=== PATIENT | female | born 1965 | race Caucasian/White ===

== ENCOUNTER → 2016-06-13 | Outpatient (CLI) | payer BC ==
[~2016-06-13] MED LIST: BIOT1TAB5 PO; HYDR0.5T PO; HYDR200T5 PO; IBUP-103 PO; SERT25TA PO
--- NOTE | 2016-06-13 12:36 | MAMMOGRAPHY REPORT ---
UNILATERAL LEFT DIGITAL DIAGNOSTIC MAMMOGRAM TOMOSYNTHESIS WITH CAD AND TARGETED LEFT ULTRASOUND: CLINICAL HISTORY: The patient reports an episode of left breast pain and greenish left nipple discha rge. The pain resolved but she did have another episode of blood tinged greenish nipple discharge. Her last episode was at the end of April. She denies any palpable lumps. TECHNIQUE: Breast tomosynthesis in addition to standard 2D mammography was performed. Current study was also evaluated with a Computer Aided Detection (CAD) system. Left CC and MLO 2-D and tomosynth esis images and spot magnification left CC and ML views were obtained. COMPARISON: Comparison is made to exams dated: 08/24/2015 mammogram, 09/08/2014 mammogram, 09/08/2014 ultrasound biopsy, 08/30/2014 mammogram, 08/22/2014 mammogram, and 03/23/2013 mammogram - [facility]. BREAST COMPOSITION: The tissue of the left breast is extremely dense, which lowers the sensitivity of mammography. FINDINGS: There are no suspicious masses, calcifications, or areas of architectural distortion note d in the left breast. There has been no significant interval change compared to prior exams. A bio psy marker clip is again noted in the left 3:00 breast. Targeted ultrasound was performed of the left subareolar breast. No intraductal mass or other suspi cious sonographic abnormalities are evident. IMPRESSION: ACR BI-RADS CATEGORY 2: BENIGN, TARGETED ULTRASOUND ACR BI-RADS CATEGORY 2: BENIGN No intraductal mass or other etiology for bloody left nipple discharge evident. There is no mammogr aphic or targeted sonographic evidence of malignancy. Recommend clinical follow-up; if the bloody n ipple discharge recurs, would recommend cytologic analysis of the discharge and consideration for MR I and/or surgical consultation. Also recommend routine bilateral screening mammograms due July 2016 . The patient has been verbally notified of the results. Approximately 10% of breast cancers are not detected with mammography. A negative mammographic repor t should not delay biopsy if a clinically suggestive mass is present. Carlee Conner M.D. ah/:06/13/2016 11:56:39 Cable Placer: Maura DOUGLASS(Latosha)(Peter), [facility] letter sent: Normal 1/2 BI-RADS Code: ACR BI-RADS Category 2: Benign Ultrasound BI-RADS: ACR BI-RADS Category 2: Benign
== END | disposition home or self-care (01) ==
LOC: C.MAMM 10:27
PROVIDERS: ATTEND Obstetrics & Gynecology
DX: N64.4 Mastodynia (principal); N64.52 Nipple discharge

== ENCOUNTER 2016-06-26 10:23 | Emergency (ER) | payer BC ==
[~2016-06-26] VITALS: Ht 165.1 cm; Wt 50.0 kg
[~2016-06-26 10:23] MED LIST changes: -HYDR200T5 PO
[2016-06-26 10:32] VITALS: TEMP 36.6; Ht 165.1 cm; Wt 50.0 kg
[2016-06-26] MEDS ORDERED: ONDANSETRON INJ 2 MG/ML 2 ML VIAL IV STA (10:46)
[2016-06-26] MEDS ORDERED: SODIUM CHLORIDE 0.9% 1000ML 1,000 ML IV STA (10:46)
[2016-06-26] MEDS ORDERED: OPTIRAY 320 IV PRN (11:00)
[2016-06-26] MEDS: FENTANYL CITRATE INJ 50 MCG/1 ML 2 ML VIAL IV PRN ×2 (11:10→13:05)
--- NOTE | 2016-06-26 11:50 | DIAGNOSTIC IMAGING REPORT ---
CHEST ONE VIEW PORTABLE CLINICAL HISTORY: Abdominal pain. COMPARISON STUDY: Chest radiograph September 25, 2014. FINDINGS: There is no pneumothorax or pleural effusion. Lung volumes are normal. Cardiac size is normal. Mediastinal contours are normal. There is lower lung interstitial prominence. IMPRESSION: No definite acute findings. Mild interstitial prominence which is likely within normal limits. Electronically signed by: Kulwant Neal M.D. 06/26/2016 11:49 AM Dictated Date/Time: 06/26/2016 11:48 AM
[2016-06-26 11:57] LABS: BASO % 0.2 %; BASO ABS # 0.02 K/uL (0-0.2); COMPLETE YES; EOS % 0.4 %; HEMATOCRIT 37.9 % (37-47); IG% 0.3 %; LYMPH % 4.9 %; LYMPH ABS # 0.47 K/uL (1.2-3.4); MEAN CELL VOLUME 94.3 fL (80-100); MEAN CORPUSCULAR HEMOGLOBIN 31.8 pg (25-34); MEAN CORPUSCULAR HGB CONC 33.8 g/dl (32-36); MEAN PLATELET VOLUME 11.6 fL (7.4-10.4); MONO % 4.6 %; NEUT % 89.6 %; PLATELET COUNT 164 K/uL (130-400); RED BLOOD COUNT 4.02 M/uL (4.2-5.4); WHITE BLOOD COUNT 9.61 K/uL (4.8-10.8)
[2016-06-26] MEDS ORDERED: HYDR200T5 PO (12:04)
[2016-06-26 12:20] LABS: BUN/CREATININE RATIO 21.4 (10-20); CALCIUM 7.8 mg/dl (8.5-10.1); CREATININE 0.5 mg/dl (0.60-1.20); POTASSIUM 3.9 mmol/L (3.5-5.1)
[2016-06-26 13:46] LABS: URINE APPEARANCE CLEAR (CLEAR); URINE COLOR DK YELLOW; URINE EPITHELIAL CELL AUTO >30 /lpf (0-5); URINE NITRITE NEG (NEG); URINE SPECIFIC GRAVITY 1.021 (1.000-1.030); UROBILINOGEN NEG (NEG); ZZUR CULT IF INDIC CLEAN CATCH NO
[2016-06-26 13:53] LABS: URINE BILIRUBIN 1+ (NEG)
[2016-06-26 13:55] LABS: MANUAL MICROSCOPIC REQUIRED? NO; REVIEW REQ? NO
--- NOTE | 2016-06-26 14:38 | DIAGNOSTIC IMAGING REPORT ---
CT SCAN OF THE ABDOMEN AND PELVIS WITH IV CONTRAST CLINICAL HISTORY: Generalized abdominal pain. COMPARISON STUDY: Abdominal CT dated 05/19/2012. TECHNIQUE: Following the IV administration of 110 cc of Optiray 320, CT scan of the abdomen and pelvis is performed from the lung bases to the proximal femora. Images are reviewed in the axial, sagittal, and coronal planes. IV contrast was administered without complication. Automated dose control exposure was utilized. CT DOSE: 259.61 mGy.cm FINDINGS: Lung bases: The heart is normal in size and without pericardial effusion. The lung bases are clear noting dependent atelectasis. Liver: The contrast-enhanced liver is normal in size, contour, and attenuation. Focal fatty infiltration is seen adjacent to the falciform ligament. There is mild central intrahepatic biliary ductal dilatation. The hepatic veins and portal veins are patent. Gallbladder: Surgically absent noting clips in the gallbladder fossa. Spleen: Normal in size and attenuation. Pancreas: Unremarkable. Adrenal glands: Unremarkable. Kidneys: The contrast enhanced kidneys are normal in size and without hydronephrosis. The kidneys enhance symmetrically. A retroaortic left renal vein is incidentally noted. There is a 3 mm nonobstructing calculus seen in the lower pole of the right kidney. Abdominal vasculature: The abdominal aorta is normal in course and caliber noting mild and age advanced atherosclerotic calcification. Bowel: The small bowel and colon are normal in course and caliber. There is mild colonic diverticulosis without CT evidence of acute diverticulitis. Fecal retention is noted in the right colon. The appendix is well-visualized and normal. Peritoneum: There is no intraperitoneal free air or abdominal ascites. There is a small fat-containing umbilical hernia. Lymphadenopathy: None. Pelvic viscera: The bladder is decompressed and grossly unremarkable. The uterus appears enlarged and heterogeneous. There are enhancing uterine masses, likely represent fibroids. A dominant follicle in the left ovary measures up to 2.7 cm. There is free fluid in the cul-de-sac. A tampon is in place. Skeletal structures: No lytic or blastic lesions are seen. There is mild lumbosacral spondylosis and scoliosis. IMPRESSION: 1. There are no acute infectious or inflammatory findings in the abdomen or pelvis. 2. The uterus is enlarged and heterogeneous. There are small enhancing uterine nodule, and while pathologically indeterminant the appearance is typical for uterine fibroids. This could be further assessed with a nonemergent pelvic ultrasound if clinically warranted. 3. Free fluid in the cul-de-sac is likely within physiologic limits. 4. Mild colonic diverticulosis without CT evidence of acute diverticulosis. 5. Small nonobstructing right renal calculus. 6. Additional findings as above. Electronically signed by: Jose Hoang M.D. 06/26/2016 2:37 PM Dictated Date/Time: 06/26/2016 2:30 PM
--- NOTE | 2016-06-26 15:04 | EMERGENCY ROOM VISIT NOTE ---
History Report prepared by Patti: Ashli Matthews Under the Supervision of: Dr. Jason Zarate D.O. First contact with patient: 10:37 Chief Complaint: ABDOMINAL PAIN Stated Complaint: EXTREME PAIN, PANCREATIC PAIN, IMTIAZ Nursing Triage Summary: Patient states she has pancreatitis and has abdominal pain into back and chest and vomiting. Symptoms began this am. History of Present Illness The patient is a 51 year old female who presents to the Emergency Room with complaints of persistent abdominal pain that began prior to arrival. She currently rates her discomfort as a 9/10 in severity. The patient states that when she woke this morning, she wasn't feeling well, associating nausea, vomiting, and diarrhea with her symptoms. The patient states that she started with the vomiting and diarrhea around 0600 this morning and states that she vomited 4 times and had 4 episodes of diarrhea. She states that she then developed intense abdominal pain that began radiating into her chest, shoulders , and through her back. The patient describes her discomfort as a squeezing pain. She notes difficulty breathing secondary to the pain. The patient states that she has had similar pain in the past, noting that she was diagnosed with a mild pancreatitis. She notes that this happened after she had her cholecystectomy. The patient states that her pain is worsened with lying flat. She notes a history of Lupus. Source of History: patient Onset: prior to arrival Position: abdomen Symptom Intensity: 9/10 Quality: other (squeezing, radiating) Timing: other (persistent) Modifying Factors (Worsening): other (lying flat) Associated Symptoms: + back pain, + chest pain, + diarrhea, + nausea, + vomiting Note: Associated Symptoms: shoulder pain, difficulty breathing due to pain Review of Systems See HPI for pertinent positives & negatives. A total of 10 systems reviewed and were otherwise negative. Past Medical & Surgical Medical Problems: (1) Bilateral tubal ligation (2) Systemic lupus erythematosus Surgical Problems: (1) Hx of cholecystectomy Family History Cancer Diabetes mellitus Gallbladder disease Heart disease Hypertension Kidney disease Kidney stones Seizures Social History Smoking Status: Current Every Day Smoker Alcohol Use: none Drug Use: none Marital Status: Housing Status: lives with family Occupation Status: employed Current/Historical Medications Scheduled Biotin (Biotin), 1,000 MCG PO HS Hydroxychloroquine Sulfate (Plaquenil), 400 MG PO HS Sertraline (Zoloft), 25 MG PO HS Scheduled PRN Ibuprofen Tab (Advil), 200-600 MG PO Q4H PRN for Pain Allergies Coded Allergies: Sulfamethoxazole w/Trimethoprim (Verified Allergy, Intermediate, lips burned/tingled/swollen, 06/26/16) Morphine (Verified Allergy, Unknown, OTHER, 06/26/16) Physical Exam Vital Signs Date Time Temp Pulse Resp B/P Pulse Ox O2 Delivery O2 Flow Rate FiO2 06/26/16 14:28 75 13 87/54 97 Room Air 06/26/16 14:00 68 12 97/57 96 Room Air 06/26/16 13:34 74 06/26/16 11:56 76 13 94/58 97 Room Air 06/26/16 11:44 73 06/26/16 10:32 36.6 78 17 103/54 99 Room Air Physical Exam CONSTITUTIONAL/VITAL SIGNS: Reviewed / noted above. GENERAL: Non-toxic in appearance. INTEGUMENTARY: Warm, dry, and [place]. HEAD: Normocephalic. EYES: without scleral icterus or trauma. ENT/OROPHARYNX: clear and moist. LYMPHADENOPATHY/NECK: Is supple without lymphadenopathy or meningismus. RESPIRATORY: Lungs clear and equal. CARDIOVASCULAR: Regular rate and rhythm. GI/ABDOMEN: Epigastric tenderness. Soft. No organomegaly or pulsatile mass. No rebound or guarding. Normal bowel sounds. EXTREMITIES: Warm and well perfused. BACK: Bilateral CVA tenderness. NEUROLOGICAL: Intact without focal deficits. PSYCHIATRIC: normal affect. MUSCULOSKELETAL: Normally developed with good muscle tone. Medical Decision & Procedures ER Provider Diagnostic Interpretation: Radiology results as stated below per my review and radiologist interpretation: CHEST ONE VIEW PORTABLE CLINICAL HISTORY: Abdominal pain. COMPARISON STUDY: Chest radiograph September 25, 2014. FINDINGS: There is no pneumothorax or pleural effusion. Lung volumes are normal. Cardiac size is normal. Mediastinal contours are normal. There is lower lung interstitial prominence. IMPRESSION: No definite acute findings. Mild interstitial prominence which is likely within normal limits. Electronically signed by: Kulwant Neal M.D. 06/26/2016 11:49 AM Dictated Date/Time: 06/26/2016 11:[address] SCAN OF THE ABDOMEN AND PELVIS WITH IV CONTRAST CLINICAL HISTORY: Generalized abdominal pain. COMPARISON STUDY: Abdominal CT dated 05/19/2012. TECHNIQUE: Following the IV administration of 110 cc of Optiray 320, CT scan of the abdomen and pelvis is performed from the lung bases to the proximal femora. Images are reviewed in the axial, sagittal, and coronal planes. IV contrast was administered without complication. Automated dose control exposure was utilized. CT DOSE: 259.61 mGy.cm FINDINGS: Lung bases: The heart is normal in size and without pericardial effusion. The lung bases are clear noting dependent atelectasis. Liver: The contrast-enhanced liver is normal in size, contour, and attenuation. Focal fatty infiltration is seen adjacent to the falciform ligament. There is mild central intrahepatic biliary ductal dilatation. The hepatic veins and portal veins are patent. Gallbladder: Surgically absent noting clips in the gallbladder fossa. Spleen: Normal in size and attenuation. Pancreas: Unremarkable. Adrenal glands: Unremarkable. Kidneys: The contrast enhanced kidneys are normal in size and without hydronephrosis. The kidneys enhance symmetrically. A retroaortic left renal vein is incidentally noted. There is a 3 mm nonobstructing calculus seen in the lower pole of the right kidney. Abdominal vasculature: The abdominal aorta is normal in course and caliber noting mild and age advanced atherosclerotic calcification. Bowel: The small bowel and colon are normal in course and caliber. There is mild colonic diverticulosis without CT evidence of acute diverticulitis. Fecal retention is noted in the right colon. The appendix is well-visualized and normal. Peritoneum: There is no intraperitoneal free air or abdominal ascites. There is a small fat-containing umbilical hernia. Lymphadenopathy: None. Pelvic viscera: The bladder is decompressed and grossly unremarkable. The uterus appears enlarged and heterogeneous. There are enhancing uterine masses, likely represent fibroids. A dominant follicle in the left ovary measures up to 2.7 cm. There is free fluid in the cul-de-sac. A tampon is in place. Skeletal structures: No lytic or blastic lesions are seen. There is mild lumbosacral spondylosis and scoliosis. IMPRESSION: 1. There are no acute infectious or inflammatory findings in the abdomen or pelvis. 2. The uterus is enlarged and heterogeneous. There are small enhancing uterine nodule, and while pathologically indeterminant the appearance is typical for uterine fibroids. This could be further assessed with a nonemergent pelvic ultrasound if clinically warranted. 3. Free fluid in the cul-de-sac is likely within physiologic limits. 4. Mild colonic diverticulosis without CT evidence of acute diverticulosis. 5. Small nonobstructing right renal calculus. 6. Additional findings as above. Electronically signed by: Jose Hoang M.D. 06/26/2016 2:37 PM Dictated Date/Time: 06/26/2016 2:30 PM Laboratory Results 06/26/16 11:40 Red Blood Count 4.02, Mean Corpuscular Volume 94.3, Mean Corpuscular Hemoglobin 31.8, Mean Corpuscular Hemoglobin Concent 33.8, Mean Platelet Volume 11.6, Neutrophils (%) (Auto) 89.6, Lymphocytes (%) (Auto) 4.9, Monocytes (%) (Auto) 4.6, Eosinophils (%) (Auto) 0.4, Basophils (%) (Auto) 0.2, Neutrophils # (Auto) 8.61, Lymphocytes # (Auto) 0.47, Monocytes # (Auto) 0.44, Eosinophils # (Auto) 0.04, Basophils # (Auto) 0.02 06/26/16 11:40 Test 06/26/16 11:40 06/26/16 13:05 White Blood Count 9.61 K/uL (4.8-10.8) Red Blood Count 4.02 M/uL (4.2-5.4) Hemoglobin 12.8 g/dL (12.0-16.0) Hematocrit 37.9 % (37-47) Mean Corpuscular Volume 94.3 fL (80-100) Mean Corpuscular Hemoglobin 31.8 pg (25-34) Mean Corpuscular Hemoglobin Concent 33.8 g/dl (32-36) Platelet Count 164 K/uL (130-400) Mean Platelet Volume 11.6 fL (7.4-10.4) Neutrophils (%) (Auto) 89.6 % Lymphocytes (%) (Auto) 4.9 % Monocytes (%) (Auto) 4.6 % Eosinophils (%) (Auto) 0.4 % Basophils (%) (Auto) 0.2 % Neutrophils # (Auto) 8.61 K/uL (1.4-6.5) Lymphocytes # (Auto) 0.47 K/uL (1.2-3.4) Monocytes # (Auto) 0.44 K/uL (0.11-0.59) Eosinophils # (Auto) 0.04 K/uL (0-0.5) Basophils # (Auto) 0.02 K/uL (0-0.2) RDW Standard Deviation 46.9 fL (36.4-46.3) RDW Coefficient of Variation 13.5 % (11.5-14.5) Immature Granulocyte % (Auto) 0.3 % Immature Granulocyte # (Auto) 0.03 K/uL (0.00-0.02) Anion Gap 3.0 mmol/L (3-11) Est Creatinine Clear Calc Drug Dose 107.4 ml/min Estimated GFR () 131.7 Estimated GFR (Non- 113.7 BUN/Creatinine Ratio 21.4 (10-20) Calcium Level 7.8 mg/dl (8.5-10.1) Total Bilirubin 0.5 mg/dl (0.2-1) Direct Bilirubin 0.2 mg/dl (0-0.2) Aspartate Amino Transf (AST/SGOT) 96 U/L (15-37) Alanine Aminotransferase (ALT/SGPT) 71 U/L (12-78) Alkaline Phosphatase 71 U/L (45-117) Total Protein 6.2 gm/dl (6.4-8.2) Albumin 3.6 gm/dl (3.4-5.0) Lipase 105 U/L (73-393) Urine Color DK YELLOW Urine Appearance CLEAR (CLEAR) Urine pH 5.0 (4.5-7.5) Urine Specific [place] 1.021 (1.000-1.030) Urine Protein NEG (NEG) Urine Glucose (UA) NEG (NEG) Urine Ketones 1+ (NEG) Urine Occult Blood NEG (NEG) Urine Nitrite NEG (NEG) Urine Bilirubin 1+ (NEG) Urine Urobilinogen NEG (NEG) Urine Leukocyte Esterase NEG (NEG) Urine WBC (Auto) 0 /hpf (0-5) Urine RBC (Auto) 0-4 /hpf (0-4) Urine Hyaline Casts (Auto) 1-5 /lpf (0-5) Urine Epithelial Cells (Auto) >30 /lpf (0-5) Urine Bacteria (Auto) NEG (NEG) Urine Test NEG (NEG) Laboratory results as stated above per my review. Medications Administered Medications (Trade) Dose Ordered Sig/Mary Route Start Time Stop Time Status Last Admin Dose Admin Sodium Chloride (Nss 1000ml) 1,000 ml @ 999 mls/hr Q1H1M STAT IV 06/26/16 10:46 06/26/16 11:46 DC 06/26/16 11:10 999 MLS/HR Ondansetron HCl (Zofran Inj) 4 mg NOW STAT IV 06/26/16 10:46 06/26/16 10:48 DC 06/26/16 11:10 4 MG Fentanyl Citrate (Fentanyl Inj) 100 mcg Q1H PRN IV 06/26/16 11:00 07/10/16 10:59 06/26/16 13:05 100 MCG ECG Indication: abdominal pain Rate (beats per minute): 73 Rhythm: normal sinus Findings: no acute ischemic change, no ectopy ED Course 1038: Previous medical records were reviewed. The patient was evaluated in room C5. A complete history and physical examination was performed. 1046: Ordered Zofran Inj 4 mg IV, Sodium Chloride 1000 ml @ 999 mls/hr IV. 1100: Ordered Fentanyl Inj 100 mcg IV. 1504: I reevaluated the patient and she is resting comfortably. I discussed the exam findings with her and her family and I discussed the treatment plan. She verbalized complete understanding and agreement. She is ready to go home. Medical Decision Differential considered: pancreatitis, hepatitis, or acute cholecystitis, AAA, UTI, pyelonephritis, kidney stones, appendicitis, diverticulitis, shingles, bowel obstruction mesenteric ischemia, intussusception,hernia, ovarian torsion, ruptured ovarian cyst,ectopic , . This is a 51-year-old female who presents to the ED with a chief complaint of nausea, vomiting and diarrhea about 4 times since 6 AM this morning. The patient is also having some abdominal pain similar to mild pancreatitis in the past. The patient states that her pain radiates into her shoulder and also into her back. She describes it as squeezing pain. She has some shortness of breath. She reports a history of cholecystectomy. The patient's vital signs are normal. Her physical exam revealed some mild upper abdominal tenderness. EKG shows a normal sinus rhythm at a rate of 73. CBC is normal. Complete metabolic panel was normal. Lipase is negative. test was negative. Urine did not show infection. A chest x-ray was negative for acute disease. CT scan abdomen and pelvis was also negative for acute disease. The patient was treated with IV fentanyl and IV fluids. She was given IV Zofran. Her symptoms have improved. She is felt to be stable for discharge and outpatient follow-up. Impression Primary Impression: Epigastric abdominal pain Scribe Attestation The scribe's documentation has been prepared under my direction and personally reviewed by me in its entirety. I confirm that the note above accurately reflects all work, treatment, procedures, and medical decision making performed by me. Departure Information Dispostion Home / Self-Care Referrals Esau Polo M.D. (PCP) Forms Call Back Authorization, HOME CARE DOCUMENTATION FORM, IMPORTANT VISIT INFORMATION Patient Instructions Abdominal Pain, My [facility] Additional Instructions Follow-up with your doctor for further care and evaluation in 1-2 days. Return to the emergency department for worsening or new symptoms or any concerns. You have been examined and treated today on an emergency basis only. This is not a substitute for, or an effort to provide, complete comprehensive medical care. It is impossible to recognize and treat all injuries or illnesses in a single emergency department visit. It is therefore important that you follow up closely with your doctor. Call as soon as possible for an appointment.
[2016-06-26 15:20] VITALS: BP 92/59; PULSE 76; O2SAT 96
== END 2016-06-26 15:21 | disposition home or self-care (01) ==
LOC: C.EDB 10:25 → C.EDC 15:21
DX: R10.13 Epigastric pain (principal); R11.2 Nausea with vomiting, unspecified; R19.7 Diarrhea, unspecified; M32.9 Systemic lupus erythematosus, unspecified; Z79.899 Other long term (current) drug therapy; Z82.0 Family history of epilepsy and other diseases of the nervous system; Z82.49 Family history of ischemic heart disease and other diseases of the circulatory system; Z83.3 Family history of diabetes mellitus; Z83.79 Family history of other diseases of the digestive system; Z84.1 Family history of disorders of kidney and ureter; F17.200 Nicotine dependence, unspecified, uncomplicated

== ENCOUNTER → 2017-01-30 | Outpatient (CLI) | payer BC ==
[~2017-01-30] MED LIST changes: -HYDR0.5T PO; +HYDR200T5 PO
--- NOTE | 2017-01-30 16:00 | DIAGNOSTIC IMAGING REPORT ---
RIGHT WRIST 3 VIEWS HISTORY: RIGHT WRIST PAIN COMPARISON: None. FINDINGS: There is no fracture or dislocation. Soft tissues are unremarkable. No radiopaque foreign bodies. IMPRESSION: No fractures. Electronically signed by: Brian Driscoll M.D. 01/30/2017 3:58 PM Dictated Date/Time: 01/30/2017 3:57 PM
== END | disposition home or self-care (01) ==
LOC: C.RDSM 16:25
PROVIDERS: ATTEND Physician Assistant
DX: M25.531 Pain in right wrist (principal)

== ENCOUNTER → 2017-02-25 | Outpatient (CLI) | payer BC ==
[~2017-02-25] MED LIST changes: +AMOX875T PO; +FLUT0.15 INH
== END | disposition home or self-care (01) ==
LOC: C.PAPS 09:37
PROVIDERS: ATTEND Physician Assistant
DX: Z01.419 Encounter for gynecological examination (general) (routine) without abnormal findings (principal)

== ENCOUNTER → 2017-06-16 | Outpatient (CLI) | payer BC ==
--- NOTE | 2017-06-17 07:51 | MAMMOGRAPHY REPORT ---
BILATERAL DIGITAL SCREENING MAMMOGRAM TOMOSYNTHESIS WITH CAD: 06/16/2017 CLINICAL HISTORY: Routine screening. Patient has no complaints. TECHNIQUE: Breast tomosynthesis in addition to standard 2D mammography was performed. Current study was also evaluated with a Computer Aided Detection (CAD) system. COMPARISON: Comparison is made to exams dated: 06/13/2016 mammogram, 08/24/2015 mammogram, 08/30/2014 ma mmogram, 08/22/2014 mammogram, 03/23/2013 mammogram, and 03/15/2012 mammogram - [facility]ter. BREAST COMPOSITION: The tissue of both breasts is extremely dense, which lowers the sensitivity of m ammography. FINDINGS: There is a stable ribbon-shaped biopsy marker clip in the 2:00 to 3:00 left breast. The gl andular pattern is similar to prior mammograms. Obvious new no mass, architectural distortion or clu ster of suspicious microcalcifications is seen. IMPRESSION: ACR BI-RADS CATEGORY 1: NEGATIVE There is no mammographic evidence of malignancy. A 1 year screening mammogram is recommended. The pa tient will receive written notification of the results. Approximately 10% of breast cancers are not detected with mammography. A negative mammographic report should not delay biopsy if a clinically suggestive mass is present. Leydi Restrepo M.D. ay/:06/16/2017 16:39:14 Stave Planer Tender: Kelley DOUGLASS(R)(M), [facility] letter sent: Normal 1/2 BI-RADS Code: ACR BI-RADS Category 1: Negative
== END | disposition home or self-care (01) ==
LOC: C.MAMM 16:18
PROVIDERS: ATTEND Obstetrics & Gynecology
DX: Z12.31 Encounter for screening mammogram for malignant neoplasm of breast (principal)

== ENCOUNTER 2017-06-19 12:04 | Emergency (ER) | payer BC ==
[~2017-06-19] VITALS: Ht 165.1 cm; Wt 45.8 kg
[~2017-06-19 12:04] MED LIST changes: -AMOX875T PO; -FLUT0.15 INH
[2017-06-19 12:11] VITALS: TEMP 36.8; Ht 165.1 cm; Wt 45.8 kg
[2017-06-19] MEDS ORDERED: AMOX875T PO (12:34)
[2017-06-19] MEDS ORDERED: FLUT0.15 INH (12:34)
[2017-06-19] MEDS ORDERED: OPTIRAY 320 IV PRN (13:00)
[2017-06-19 13:13] LABS: BASO ABS # 0.06 K/uL (0-0.2); EOS % 3.6 %; EOS ABS # 0.21 K/uL (0-0.5); HEMATOCRIT 40.2 % (37-47); HEMOGLOBIN 13.7 g/dL (12.0-16.0); IG# 0.02 K/uL (0.00-0.02); LYMPH % 32.3 %; LYMPH ABS # 1.86 K/uL (1.2-3.4); MEAN CELL VOLUME 92.2 fL (80-100); MEAN CORPUSCULAR HEMOGLOBIN 31.4 pg (25-34); MEAN CORPUSCULAR HGB CONC 34.1 g/dl (32-36); MEAN PLATELET VOLUME 10.8 fL (7.4-10.4); MONO % 7.6 %; MONO ABS # 0.44 K/uL (0.11-0.59); NEUT % 55.2 %; NEUT ABS # 3.17 K/uL (1.4-6.5); PLATELET COUNT 181 K/uL (130-400); RED CELL DISTRIBUTION WIDTH CV 13.2 % (11.5-14.5); RED CELL DISTRIBUTION WIDTH SD 44.9 fL (36.4-46.3); WHITE BLOOD COUNT 5.76 K/uL (4.8-10.8)
[2017-06-19 13:23] LABS: PTT PATIENT 28.3 SECONDS (21.0-31.0)
[2017-06-19 13:30] LABS: CALCIUM 9.1 mg/dl (8.5-10.1); CREATININE 0.64 mg/dl (0.60-1.20); POTASSIUM 3.6 mmol/L (3.5-5.1)
--- NOTE | 2017-06-19 14:31 | DIAGNOSTIC IMAGING REPORT ---
SINUSES-MAXILLOFACIAL WITH HISTORY: 52 years-old Female eval for sinusitis acute left-sided facial and head pain with concern for acute sinusitis. COMPARISON: CT of the paranasal sinuses 06/13/2011 TECHNIQUE: Multiple axial CT images of the paranasal sinuses and maxillofacial bones were obtained following the intravenous administration of 95 mL Optiray 320 IV contrast. A dose lowering technique was used consistent with the principals of DEE. FINDINGS: Bilateral orbits are unremarkable and within normal limits. Soft tissues are unremarkable without drainable fluid collection or significant inflammatory change. Imaged bilateral parotid glands are unremarkable. Image carotid vasculature appears to be within normal limits. The imaged carotid vasculature appears unremarkable. Mastoid air cells and middle ear cavities are clear. Minimal mucosal thickening of the left sphenoid sinus. The right sphenoid sinus, maxillary and frontal sinuses are clear. There is mild mucosal thickening of the anterior and posterior ethmoid air cells. The sphenoethmoidal and frontoethmoidal recesses are patent. The bilateral maxillary ostiomeatal units are also patent. There is mild leftward bowing and spurring of the nasal septum. Small bilateral salas bullosa. No Leslie cell. Josephine terri appears normal. Mild mucosal thickening of the nasal turbinates. Imaged nasopharynx appears patent. IMPRESSION: 1. Mild ethmoid sinus disease with patency of the sinus outflow tracts. 2. Mild leftward bowing and spurring of the nasal septum redemonstrated. 3. Small bilateral salas bullosa. The above report was generated using voice recognition software. It may contain grammatical, syntax or spelling errors. Electronically signed by: Thaddeus Pulido M.D. 06/19/2017 2:30 PM Dictated Date/Time: 06/19/2017 2:24 PM
--- NOTE | 2017-06-19 14:34 | DIAGNOSTIC IMAGING REPORT ---
HEAD WITHOUT CONTRAST (CT) CLINICAL HISTORY: 52 years-old Female presenting with headache, eval for mass. TECHNIQUE: Multidetector CT imaging of the head was performed without the use of intravenous contrast. IV contrast: None. A dose lowering technique was used consistent with the principles of ALARA (as low as reasonably achievable). COMPARISON: 07/27/2005. CT DOSE (mGy.cm): The estimated cumulative dose is 1015.03. FINDINGS: Mallet Cutter topogram: Unremarkable. Ventricles and sulci normal in size. Brain parenchyma normal in appearance with preserved woods-white differentiation. No mass effect or midline shift. No hemorrhage or acute territorial infarct. No extra-axial fluid collection. Paranasal sinuses and mastoid air cells clear. Calvarium intact. IMPRESSION: 1. No acute intracranial abnormality. Electronically signed by: Ajay Funez M.D. 06/19/2017 2:32 PM Dictated Date/Time: 06/19/2017 2:29 PM
[2017-06-19 15:27] VITALS: BP 98/60; PULSE 68; O2SAT 99
--- NOTE | 2017-06-19 19:49 | EMERGENCY ROOM VISIT NOTE ---
History Report prepared by Patti: Lewis Priest Under the Supervision of: Dr. Alex Currie M.D. First contact with patient: 12:26 Chief Complaint: HEADACHE Stated Complaint: HEADACHE History of Present Illness The patient is a 52 year old female who presents to the Emergency Room with complaints of intermittent headaches beginning four months ago. She localizes the pain to behind her left eye, which occasionally radiates to the back of her head. The patient notes that bright lights bother her eyes. She also complains of tingling to the left side of her face, and blurred vision. Her vision does not blur when she fixates on a point. The blurring is transient and she gets it when she is in pain. The patient states that her pain is worse with moving her left eye. She feels that her eye is pushing out slightly. She states that her symptoms are all present simultaneously. The patient saw her financial writer earlier this month and was told that her eye appeared normal. She was seen by her PCP for her symptoms earlier this week and placed on Augmentin for sinus infection. She denies fevers, diarrhea, urinary symptoms, or cough. The patient states that she has experienced a vibrating sensation to her left arm and left leg a few times, as well as an episode of heart palpitations additionally. The patient's denies noticing any swelling to her left eye. The patient states that her father and hair colorist have noticed that her left eye appears different than normal. The patient has a history of a unidentified connective tissue disorder (treated with Plaquenil) for which she follows up with Rheumatology. Source of History: patient Onset: Four months ago Position: head (behind left eye, occasionally radiating to back of head) Quality: ache Timing: intermittent Modifying Factors (Worsening): other (moving left eye) Associated Symptoms: No fevers, No cough, No diarrhea, No urinary symptoms Note: The patient also complains of tingling to the left side of her face, and blurred vision. Review of Systems See HPI for pertinent positives & negatives. A total of 10 systems reviewed and were otherwise negative. Past Medical & Surgical Medical Problems: (1) Bilateral tubal ligation (2) Systemic lupus erythematosus Surgical Problems: (1) Hx of cholecystectomy Family History Cancer Diabetes mellitus Gallbladder disease Heart disease Hypertension Kidney disease Kidney stones Seizures Social History Smoking Status: Current Every Day Smoker Alcohol Use: none Drug Use: none Marital Status: Housing Status: lives with family Occupation Status: employed Current/Historical Medications Scheduled Amoxicillin & Pot Clavulanate (Augmentin 875-125 mg), 1 TAB PO BID Fluticasone Propionate (Nasal) (Flonase Allergy Relief), 2 SPRAYS INH QAM Hydroxychloroquine Sulfate (Plaquenil), 400 MG PO HS Sertraline (Zoloft), 25 MG PO HS Scheduled PRN Ibuprofen Tab (Advil), 200-600 MG PO Q4H PRN for Pain Allergies Coded Allergies: Sulfamethoxazole w/Trimethoprim (Verified Allergy, Intermediate, lips burned/tingled/swollen, 06/19/17) Morphine (Verified Allergy, Unknown, OTHER, 06/19/17) Physical Exam Vital Signs Date Time Temp Pulse Resp B/P (MAP) Pulse Ox O2 Delivery O2 Flow Rate FiO2 06/19/17 15:27 68 18 98/60 99 06/19/17 14:32 79 20 100/49 100 Room Air 06/19/17 12:11 36.8 78 17 106/70 99 Room Air Physical Exam Constitutional: Vital signs reviewed. Eyes: Pupils are equal round reactive to light. Conjunctiva are noninjected. Intraocular pressure is 11 on the left and 12 on the right. No papular edema bilaterally. No proptosis of the orbit. No surrounding cellulitis. ENT: Left maxillary tenderness with inflammation of the bilateral turbinates. Pharynx is clear without erythema or exudate. Mucous membranes are moist. Neck supple without meningeal signs. Respiratory: Clear to auscultation bilaterally. Breath sounds are equal bilaterally. Cardiovascular: Regular rate and rhythm. No rubs or gallops. GI: Soft, nondistended and nontender. Bowel sounds are present. Musculoskeletal: No peripheral edema. No lower extremity tenderness. Integumentary: No cyanosis. Neurological: The patient is awake and alert. Cranial nerves II-XII are intact. Motor is 5 out of 5 all extremities. Sensation is intact to light touch all extremities. Normal speech. No pronator drift. Psychiatric: Normal affect. Appears anxious. Medical Decision & Procedures ER Provider Diagnostic Interpretation: Radiology results as stated below per my review and the radiologist's interpretation: SINUSES-MAXILLOFACIAL WITH FINDINGS: Bilateral orbits are unremarkable and within normal limits. Soft tissues are unremarkable without drainable fluid collection or significant inflammatory change. Imaged bilateral parotid glands are unremarkable. Image carotid vasculature appears to be within normal limits. The imaged carotid vasculature appears unremarkable. Mastoid air cells and middle ear cavities are clear. Minimal mucosal thickening of the left sphenoid sinus. The right sphenoid sinus, maxillary and frontal sinuses are clear. There is mild mucosal thickening of the anterior and posterior ethmoid air cells. The sphenoethmoidal and frontoethmoidal recesses are patent. The bilateral maxillary ostiomeatal units are also patent. There is mild leftward bowing and spurring of the nasal septum. Small bilateral salas bullosa. No Leslie cell. Josephine terri appears normal. Mild mucosal thickening of the nasal turbinates. Imaged nasopharynx appears patent. IMPRESSION: 1. Mild ethmoid sinus disease with patency of the sinus outflow tracts. 2. Mild leftward bowing and spurring of the nasal septum redemonstrated. 3. Small bilateral salas bullosa. The above report was generated using voice recognition software. It may contain grammatical, syntax or spelling errors. Electronically signed by: Thaddeus Pulido M.D. 06/19/2017 2:30 PM HEAD WITHOUT CONTRAST (CT) FINDINGS: Money Manager topogram: Unremarkable. Ventricles and sulci normal in size. Brain parenchyma normal in appearance with preserved woods-white differentiation. No mass effect or midline shift. No hemorrhage or acute territorial infarct. No extra-axial fluid collection. Paranasal sinuses and mastoid air cells clear. Calvarium intact. IMPRESSION: 1. No acute intracranial abnormality. Electronically signed by: Ajay Funez M.D. 06/19/2017 2:32 PM Laboratory Results 06/19/17 13:00 Red Blood Count 4.36, Mean Corpuscular Volume 92.2, Mean Corpuscular Hemoglobin 31.4, Mean Corpuscular Hemoglobin Concent 34.1, Mean Platelet Volume 10.8, Neutrophils (%) (Auto) 55.2, Lymphocytes (%) (Auto) 32.3, Monocytes (%) (Auto) 7.6, Eosinophils (%) (Auto) 3.6, Basophils (%) (Auto) 1.0, Neutrophils # (Auto) 3.17, Lymphocytes # (Auto) 1.86, Monocytes # (Auto) 0.44, Eosinophils # (Auto) 0.21, Basophils # (Auto) 0.06 06/19/17 13:00 Test 06/19/17 13:00 White Blood Count 5.76 K/uL (4.8-10.8) Red Blood Count 4.36 M/uL (4.2-5.4) Hemoglobin 13.7 g/dL (12.0-16.0) Hematocrit 40.2 % (37-47) Mean Corpuscular Volume 92.2 fL (80-100) Mean Corpuscular Hemoglobin 31.4 pg (25-34) Mean Corpuscular Hemoglobin Concent 34.1 g/dl (32-36) Platelet Count 181 K/uL (130-400) Mean Platelet Volume 10.8 fL (7.4-10.4) Neutrophils (%) (Auto) 55.2 % Lymphocytes (%) (Auto) 32.3 % Monocytes (%) (Auto) 7.6 % Eosinophils (%) (Auto) 3.6 % Basophils (%) (Auto) 1.0 % Neutrophils # (Auto) 3.17 K/uL (1.4-6.5) Lymphocytes # (Auto) 1.86 K/uL (1.2-3.4) Monocytes # (Auto) 0.44 K/uL (0.11-0.59) Eosinophils # (Auto) 0.21 K/uL (0-0.5) Basophils # (Auto) 0.06 K/uL (0-0.2) RDW Standard Deviation 44.9 fL (36.4-46.3) RDW Coefficient of Variation 13.2 % (11.5-14.5) Immature Granulocyte % (Auto) 0.3 % Immature Granulocyte # (Auto) 0.02 K/uL (0.00-0.02) Prothrombin Time 10.5 SECONDS (9.0-12.0) Prothromb Time International Ratio 1.0 (0.9-1.1) Activated Partial Thromboplast Time 28.3 SECONDS (21.0-31.0) Partial Thromboplastin Ratio 1.1 Anion Gap 2.0 mmol/L (3-11) Est Creatinine Clear Calc Drug Dose 76.0 ml/min Estimated GFR () 120.6 Estimated GFR (Non- 104.1 BUN/Creatinine Ratio 17.6 (10-20) Calcium Level 9.1 mg/dl (8.5-10.1) Laboratory results as reviewed by me. ED Course 1234: The patient was evaluated in room B10. A complete history and physical exam was performed. 1455: Upon reevaluation, the patient appeared to have improvement of her symptoms. I discussed tonight's findings with her. I recommended follow up with ENT. She verbalized agreement of the treatment plan. The patient was discharged home. Medical Decision This is a 52-year-old female who presents with headache, eye pain and facial pain. Differential diagnosis includes migraine headache, tension headache, sinusitis, post septal cellulitis, glaucoma, brain mass. I did perform a limited focused review of portions of the patient's old chart on the electronic medical record. The patient has had no recent pertinent visits to this hospital. I did evaluate the patient as noted above. The patient has been having sinus issues since January of last year. She has been having facial pain, headaches and left eye pain. She has seen her financial writer who told her that her eyes were fine. Her visual acuity and intraocular pressure here were normal. She is neurologically intact. IV access was established. I did order and review the patient's blood work as noted in the electronic medical record. Her white blood cell count is not elevated. I did order a CT of head and sinuses. I did review the images myself as well as the radiology report as described above. There is no evidence of acute abnormality in the head. She does have some evidence of ethmoid sinusitis. There is no abnormality to her orbits. I did discuss the test results with the patient. I did recommend that she continue the Augmentin as prescribed and talk to her doctor about referral to an ENT physician. She was discharged in good condition. Medication Reconcilliation Current Medication List: was personally reviewed by me Blood Pressure Screening Patient's blood pressure: Normal blood pressure Blood pressure disposition: Did not require urgent referral Impression Primary Impression: Acute sinusitis Additional Impressions: Paresthesias Headache Scribe Attestation The scribe's documentation has been prepared under my direct and personally reviewed by me in its entirety. I confirm that the note above accurately reflects all work, treatment, procedures, and medical decision making performed by me. Departure Information Dispostion Home / Self-Care Referrals Esau Polo M.D. (PCP) Forms HOME CARE DOCUMENTATION FORM, IMPORTANT VISIT INFORMATION Patient Instructions ED Paraesthesias, My [facility], Sinusitis Acute Additional Instructions You have been examined and treated today on an emergency basis only. This is not a substitute for, or an effort to provide, complete comprehensive medical care. It is impossible to recognize and treat all injuries or illnesses in a single emergency department visit. It is therefore important that you follow up closely with your physician. Call as soon as possible for an appointment. Talked to your doctor about possible ENT physician referral. Return for worsening symptoms or if you develop fever, vomiting, loss of vision or any other concerning symptoms. Problem Qualifiers Primary Impression: Acute sinusitis Sinusitis location: ethmoidal Recurrence: recurrent Qualified Codes: J01.21 - Acute recurrent ethmoidal sinusitis Additional Impressions: Headache Headache type: unspecified Headache chronicity pattern: episodic headache Intractability: not intractable Qualified Codes: R51 - Headache
== END 2017-06-19 15:28 | disposition home or self-care (01) ==
LOC: C.EDB 12:05
DX: J01.21 Acute recurrent ethmoidal sinusitis (principal); R20.2 Paresthesia of skin; M32.9 Systemic lupus erythematosus, unspecified; Z98.51 Tubal ligation status; Z90.49 Acquired absence of other specified parts of digestive tract; Z80.9 Family history of malignant neoplasm, unspecified; Z83.3 Family history of diabetes mellitus; Z82.49 Family history of ischemic heart disease and other diseases of the circulatory system; Z84.1 Family history of disorders of kidney and ureter; Z82.0 Family history of epilepsy and other diseases of the nervous system; F17.210 Nicotine dependence, cigarettes, uncomplicated; Z79.899 Other long term (current) drug therapy; Z88.5 Allergy status to narcotic agent; Z88.2 Allergy status to sulfonamides